=== PATIENT | female | born 1955 | race Caucasian/White ===

== ENCOUNTER 2017-06-29 10:31 | Inpatient (IN) | payer BC ==
[~2017-06-29] VITALS: Ht 162.6 cm; Wt 65.8 kg
--- NOTE | ~2017-06-29 | OP ---
PATIENT NAME: JONATHAN MENDOZA MEDICAL RECORD: [id number] :51 LOCATION:[id number] ADMISSION DATE:06/29/17 SURGEON: EULOGIO WEATHERS DO DATE OF OPERATION: 07/01/2017 DATE OF SURGERY: 07/01/2017 PROCEDURE PERFORMED: Left ankle bimalleolar open reduction internal fixation. PREOPERATIVE DIAGNOSIS: Left ankle bimalleolar fracture, closed. POSTOPERATIVE DIAGNOSIS: Left ankle bimalleolar fracture, closed. INDICATIONS: The patient is a 61-year-old female who fell while hiking and sustained a fracture and subluxation of her left ankle and was taken to the ER. X-rays were taken. The ankle was reduced and put into a splint. Surgery could not be done the day she got here. She is admitted for pain control and elevation. She was consented for procedure today. She was informed of the risks and benefits and consented to the procedure. SURGEON: Eulogio Weathers D.O. TOURNIQUET TIME: 64 minutes. ESTIMATED BLOOD LOSS: 50 mL. COMPLICATIONS: None. DESCRIPTION OF PROCEDURE: The patient was taken to the OR suite after getting a block in the preop area by anesthesia, laid in the supine position, given general anesthetic and LMA was placed. Once this was done, the left lower extremity was prepped and draped in sterile fashion. Time out was performed, everyone was in agreement of correct side, site, and the patient and she was given 2 grams Ancef. The procedure then commenced. I exsanguinated the left lower extremity with an Esmarch and then tourniquet was inflated. Once tourniquet was inflated, the lateral port was addressed first. Incision was made over the fibula and careful dissection was made down to the fibula itself. Reduction was made. It was somewhat difficult due to the comminution of the fracture site. The plate was put on locked with locking screws distally first and then proximally in the shafts. After reduction was made, a nonlocker was put into the shaft and the second to last hole and then a locker was placed in the most proximal hole. After this was done, attention was drawn to the medial side and a small incision was made over the medial malleolus in a curvilinear pattern and dissection was made down to the fracture site. The fracture was reduced and held in place with a single K-wire and then a second K-wire was placed just posterior to it. X-rays were taken and seemed to be good reduction of the medial malleolus and then cannulated screws were placed over those K-wires. After reaching the far cortex with a drill the 4.0 cannulated screws x 48 mm long. Good reduction was seen on x-ray. The K-wires were removed and then the ankle was stressed. It was not seen to open it all medially or any subluxation of the talus laterally and tourniquet was let down at 64 minutes. Any bleeders were coagulated at that time with the Bovie and this incision sites were irrigated. The medial side was then closed with 3-0 Vicryl in an inverted interrupted fashion on the skin and the lateral side was closed with 2-0 Vicryl in inverted interrupted fashion and then a ZipLine was placed over each of the OPERATIVE REPORT [id number] JONATHAN MENDOZA incision sites. Adaptic, 4 x 4s, and ABD were placed over the incisions and on the heel. Then, the whole leg was wrapped with layer of cast padding, a layer Kerlix and another layer of Webril and then a splint was put posteriorly and secured with a 6-inch Jacoby. The knee was held in flexion while the splint molded nicely. The patient was then awakened and taken to recovery in stable condition. TRANSINT:[id number] Voice Confirmation ID: [id number] DOCUMENT ID: [id number] EULOGIO WEATHERS DO at 2154 CC: [id number] DICTATION DATE: 07/01/17 1044 EMERGENCY RESPONSE COORDINATOR: 07/01/17 1141 ADM IN [facility] [address] [place] [address]
--- NOTE | ~2017-06-29 | EC ---
PATIENT:JONATHAN MENDOZA DATE OF SERVICE: 06/29/17 SEX: F MEDICAL RECORD: [id number] DATE OF : [birth year] LOCATION:[facility] AGE OF PATIENT: 61 ADMISSION DATE: 06/29/17 REFERRING PHYSICIAN: INTERPRETING PHYSICIAN: YOSHI THAPA MD ECHOCARDIOGRAM REPORT ECHO CHARGES 4 ECHO COMPLETE CLINICAL DIAGNOSIS: PRE-OP ECHOCARDIOGRAPHIC MEASUREMENTS (adult normal given) AC root (d.<3.7cm) 3.5 cm LV Septum d (<1.2 cm> 1.1 cm Valve Excursion 2.2 cm LV Septum (systole) 1.8 cm Left Atria (s.<4.0cm> 3.8 cm LVPW d(<1.2cm) 1.2 cm RV (d.<2.3cm) 2.2 cm LVPW (sytole) 2.0 cm LV diastole(<5.6CM) 6.1 cm MV E-F(>70mm/sec) cm LV systole 3.8 cm LVOT Diameter 1.9 cm MV exc.(>10mm) cm Est.ejection fraction (50-75%) % Pericardial Effusion N DOPPLER: LVIT cm/sec A 74.0 cm/sec E 60.0 cm/sec LA cm/sec RVSP 23.4 mmHg LVOT 101 cm/sec AOP1/2T m/s Asc. Ao 123 cm/sec RVOT 65.0 cm/sec RA cm/sec PA 91.0 cm/sec AV Gradient Peak 6.1 mmHg AV Mean 2.9 mmHg AV Area 2.7 cm MV Gradient Peak 3.2 mmHg MV Mean 1.1 mmHg MV Area cm COMMENTS: Machine Rug Cleaner: Graham LEIVAOE Director Of Accreditation: 4 Dr. Thapa TAPE# PACS DATE OF SERVICE: 06/30/2017 PROCEDURE: Transthoracic echocardiogram. FINDINGS: 1. Left ventricle is normal size to mildly dilated. The endocardial surface is not well visualized. There is a suggestion of posterior hypokinesis. The overall ejection fraction is low normal to mildly reduced at 45% to 50%. 2. The left atrium appears to be normal size, normal function. 3. The aortic valve is normal. ECHOCARDIOGRAM REPORT [id number] JONATHAN MENDOZA 4. Mitral valve is normal. 5. The tricuspid valve is normal. 6. Pericardium is normal. 7. The right atrium is normal. 8. The right ventricle is normal. CONCLUSIONS: The patient has a difficult to visualize echocardiogram, but grossly there are no obvious abnormalities on inflow across and into the left ventricle. There appears to be evidence of diastolic dysfunction and mild hypertensive heart disease. TRANSINT:[id number] Voice Confirmation ID: [id number] DOCUMENT ID: [id number] 07/07/2017 Edited to correct date of service, dmm. YOSHI THAPA MD at 1038 CC: [id number] DICTATION DATE: 07/01/17 1043 CREDIT OPERATIONS PROCESSOR: 07/01/17 1057 DIS IN 07/04/17 [address] [place] [address]
[~2017-06-29 10:31] MED LIST: ASPIRIN 81 MG E81 MG PO; COLACE100 MG PO; ELAVIL10 MG PO; FLOMAX0.4 MG PO; HEMOCYTE PLUS1 CAP PO; K-DUR20 MEQ PO; LEVOTHROID50 MCG; LEVOTHROID50 MCG PO; LOPRESSOR25 MG PO; MIRALAX17 GM PO; NEURONTIN 300300 MG PO; NORCO 10/325 TA1 TA1 PO; ONGLYZA5 MG PO; PRILOSEC20 MG PO; PRINIVIL20 MG PO; ZOCOR20 MG PO
[2017-06-29 23:01] VITALS: BP 152/79; BMI 24.9
[2017-06-30] VITALS: BP 152/79
[2017-06-30 04:00] VITALS: BP 156/80
[2017-06-30 08:36] VITALS: BP 123/70
[2017-06-30 11:34] LABS: BASOPHILS 0.6 % (0-2); EOSINOPHILS 0.4 % (0-7); HEMATOCRIT 35.3 % (36.0-48.0); HEMOGLOBIN 11.5 g/dL (12-16); LYMPHOCYTES 17.6 % (15-50); MCH 34.5 pg (26.0-34.0); MCHC 32.6 g/dL (31.0-37.0); MONOCYTES 8.6 % (2-11); NEUTROPHILS 72.8 % (40-80); PLATELET COUNT 240 10x3/uL (130-400); RBC 3.33 10x6/uL (4.00-5.40); WBC 5.5 10x3/uL (4.8-10.8)
[2017-06-30 11:41] LABS: ANION GAP 13.1 mmol/L (8-16); CARBON DIOXIDE 28.6 mmol/L (21.0-32.0); CREATININE - SERUM 0.9 mg/dL (0.6-1.3); POTASSIUM - SERUM 3.7 mmol/L (3.5-5.1)
[2017-06-30 11:42] LABS: INR 0.99 (0.85-1.17); PROTIME 12.7 SECONDS (11.6-15.0)
[2017-06-30 12:02] VITALS: BP 144/76
[2017-06-30 12:32] VITALS: BMI 24.9
[2017-06-30 14:09] VITALS: Ht 162.6 cm; Wt 65.8 kg
[2017-06-30 15:52] VITALS: BP 122/66
[2017-06-30 20:00] VITALS: BP 131/85
[2017-07-01 03:52] VITALS: BP 114/72
[2017-07-01 05:00] VITALS: BP 128/88
[2017-07-01 06:31] LABS: BASOPHILS 0.4 % (0-2); EOSINOPHILS 1.7 % (0-7); HEMOGLOBIN 10.4 g/dL (12-16); IMMATURE GRANULOCYTES 0.2 % (0-5); MCH 33.8 pg (26.0-34.0); MCHC 31.5 g/dL (31.0-37.0); MCV 107.1 fL (80.0-100.0); MEAN PLATELET VOLUME 10.4 fL (7.4-10.4); MONOCYTES 9.6 % (2-11); NEUTROPHILS 69.1 % (40-80); PLATELET COUNT 215 10x3/uL (130-400); RBC 3.08 10x6/uL (4.00-5.40); RDW 15.9 % (11.5-14.5); WBC 4.6 10x3/uL (4.8-10.8)
[2017-07-01 06:55] LABS: ALBUMIN 3.3 g/dL (3.4-5.0); ALKALINE PHOSPHATASE 86 U/L (46-116); ALT (SGPT) 24 U/L (10-68); BILIRUBIN - TOTAL 0.52 mg/dL (0.2-1.3); CALC OSMOLALITY 277 mosm/kg (275-300); CALCIUM 8.5 mg/dL (8.5-10.1); CARBON DIOXIDE 29.6 mmol/L (21.0-32.0); CHLORIDE - SERUM 103 mmol/L (98-107); CREATININE - SERUM 0.7 mg/dL (0.6-1.3); GLUCOSE 97 mg/dL (74-106); POTASSIUM - SERUM 3.6 mmol/L (3.5-5.1); PROTEIN - SERUM 6.4 g/dL (6.4-8.2); SODIUM 140 mmol/L (136-145); UREA NITROGEN 9 mg/dL (7-18); eGFR NON AFRICAN AMERICAN 90 mL/min (90-120)
[2017-07-01 11:03] VITALS: BP 149/83
[2017-07-01 11:07] VITALS: BP 144/69
[2017-07-01 22:00] VITALS: BP 140/72
[2017-07-02 05:00] VITALS: BP 139/74
[2017-07-02 07:18] LABS: ALBUMIN 3.1 g/dL (3.4-5.0); ALKALINE PHOSPHATASE 76 U/L (46-116); ALT (SGPT) 22 U/L (10-68); CALC OSMOLALITY 276 mosm/kg (275-300); CALCIUM 8.3 mg/dL (8.5-10.1); CARBON DIOXIDE 26.3 mmol/L (21.0-32.0); CHLORIDE - SERUM 104 mmol/L (98-107); CREATININE - SERUM 0.6 mg/dL (0.6-1.3); GLUCOSE 102 mg/dL (74-106); POTASSIUM - SERUM 3.4 mmol/L (3.5-5.1); PROTEIN - SERUM 6.5 g/dL (6.4-8.2); SODIUM 140 mmol/L (136-145); eGFR NON AFRICAN AMERICAN > 90 mL/min (90-120)
[2017-07-02 07:19] LABS: UREA NITROGEN 6 mg/dL (7-18)
[2017-07-02 07:28] VITALS: BP 150/72
[2017-07-02 07:50] LABS: BASOPHILS 0 % (0-2); EOSINOPHILS 0.1 % (0-7); HEMATOCRIT 29.8 % (36.0-48.0); HEMOGLOBIN 9.7 g/dL (12-16); IMMATURE GRANULOCYTES 0.1 % (0-5); LYMPHOCYTES 11.9 % (15-50); MCH 34.3 pg (26.0-34.0); MCHC 32.6 g/dL (31.0-37.0); MCV 105.3 fL (80.0-100.0); MEAN PLATELET VOLUME 10.2 fL (7.4-10.4); MONOCYTES 9.8 % (2-11); NEUTROPHILS 78.1 % (40-80); PLATELET COUNT 186 10x3/uL (130-400); RBC 2.83 10x6/uL (4.00-5.40); RDW 15.2 % (11.5-14.5)
[2017-07-02 07:53] LABS: WBC 6.9 10x3/uL (4.8-10.8)
[2017-07-02 11:04] VITALS: BP 137/77
[2017-07-02 20:00] VITALS: BP 122/73
[2017-07-03 04:00] VITALS: BP 126/75
[2017-07-03 06:23] LABS: BASOPHILS 0.3 % (0-2); EOSINOPHILS 1.3 % (0-7); HEMATOCRIT 31.6 % (36.0-48.0); IMMATURE GRANULOCYTES 0.2 % (0-5); LYMPHOCYTES 22.7 % (15-50); MCHC 31.6 g/dL (31.0-37.0); MEAN PLATELET VOLUME 10.7 fL (7.4-10.4); MONOCYTES 9.6 % (2-11); NEUTROPHILS 65.9 % (40-80); PLATELET COUNT 206 10x3/uL (130-400); RBC 2.94 10x6/uL (4.00-5.40); RDW 15.6 % (11.5-14.5)
[2017-07-03 06:26] LABS: MCV 107.5 fL (80.0-100.0)
[2017-07-03 06:53] LABS: ALBUMIN 2.7 g/dL (3.4-5.0); ALKALINE PHOSPHATASE 73 U/L (46-116); ALT (SGPT) 23 U/L (10-68); CALCIUM 8.5 mg/dL (8.5-10.1); CARBON DIOXIDE 28.2 mmol/L (21.0-32.0); CHLORIDE - SERUM 104 mmol/L (98-107); CREATININE - SERUM 0.7 mg/dL (0.6-1.3); GLUCOSE 94 mg/dL (74-106); PROTEIN - SERUM 6.2 g/dL (6.4-8.2); SODIUM 138 mmol/L (136-145); eGFR NON AFRICAN AMERICAN 90 mL/min (90-120)
[2017-07-03 06:54] LABS: CALC OSMOLALITY 274 mosm/kg (275-300); POTASSIUM - SERUM 4.1 mmol/L (3.5-5.1); UREA NITROGEN 9 mg/dL (7-18)
[2017-07-03 08:51] VITALS: BP 140/80
[2017-07-03 12:20] VITALS: BP 152/79
[2017-07-03 16:03] VITALS: BP 124/67
[2017-07-03 20:00] VITALS: BP 150/76
[2017-07-04 04:00] VITALS: BP 140/75
[2017-07-04 07:01] LABS: BASOPHILS 0.3 % (0-2); EOSINOPHILS 1.6 % (0-7); HEMATOCRIT 32.3 % (36.0-48.0); HEMOGLOBIN 10.6 g/dL (12-16); LYMPHOCYTES 15.4 % (15-50); MCH 34.6 pg (26.0-34.0); MCHC 32.8 g/dL (31.0-37.0); MCV 105.6 fL (80.0-100.0); MEAN PLATELET VOLUME 10.4 fL (7.4-10.4); MONOCYTES 10.4 % (2-11); NEUTROPHILS 72.3 % (40-80); PLATELET COUNT 220 10x3/uL (130-400); RBC 3.06 10x6/uL (4.00-5.40); RDW 15.1 % (11.5-14.5); WBC 6.4 10x3/uL (4.8-10.8)
[2017-07-04 07:27] LABS: % SATURATION 10 % (15-55); IRON 26 ug/dl (35-150); TOTAL IRON BIND CAPACITY 248 ug/dl (260-445); UNSAT IRON BIND CAPACITY 222 ug/dl (150-375)
[2017-07-04 07:38] LABS: ALKALINE PHOSPHATASE 77 U/L (46-116); ALT (SGPT) 24 U/L (10-68); BILIRUBIN - TOTAL 0.52 mg/dL (0.2-1.3); CALC OSMOLALITY 275 mosm/kg (275-300); CALCIUM 8.8 mg/dL (8.5-10.1); CARBON DIOXIDE 26.9 mmol/L (21.0-32.0); CHLORIDE - SERUM 102 mmol/L (98-107); CREATININE - SERUM 0.7 mg/dL (0.6-1.3); FERRITIN 70 ng/mL (3-244); GLUCOSE 106 mg/dL (74-106); POTASSIUM - SERUM 3.9 mmol/L (3.5-5.1); PROTEIN - SERUM 6.4 g/dL (6.4-8.2); SODIUM 139 mmol/L (136-145); UREA NITROGEN 8 mg/dL (7-18); eGFR NON AFRICAN AMERICAN 90 mL/min (90-120)
[2017-07-04 08:30] VITALS: BP 135/72
[2017-07-04] MEDS ORDERED: ATARAX 25 MG TA25 MG PO (10:46)
[2017-07-04] MEDS ORDERED: OXYCODONE HCL5 MG PO (10:46)
[2017-07-04] MEDS ORDERED: ELIQUIS2.5 MG PO (10:47)
[2017-07-04 12:16] VITALS: BP 127/76
== END 2017-07-04 15:51 | disposition home health service (06) | DRG 563 ==
LOC: D.ER 10:31 → D.MS 17:19
PROVIDERS: Family Medicine; Internal Medicine Nephrology; Orthopaedic Surgery
PROC: 0QSKXZZ Reposition Left Fibula, External Approach (ICD-10-PCS; principal; 2017-06-29)
PROC: 0QSHXZZ Reposition Left Tibia, External Approach (ICD-10-PCS; 2017-06-29)
DX: S82.842A Displaced bimalleolar fracture of left lower leg, initial encounter for closed fracture (principal); W01.0XXA Fall on same level from slipping, tripping and stumbling without subsequent striking against object, initial encounter; E11.65 Type 2 diabetes mellitus with hyperglycemia; D53.9 Nutritional anemia, unspecified; E03.9 Hypothyroidism, unspecified; I10 Essential (primary) hypertension; I25.10 Atherosclerotic heart disease of native coronary artery without angina pectoris; E78.5 Hyperlipidemia, unspecified; I25.2 Old myocardial infarction

== ENCOUNTER → 2017-10-31 10:22 | Outpatient (CLI) | payer MEDICAID ==
[2017-06-30 14:09] VITALS: BMI 24.9
[~2017-10-31 10:22] MED LIST changes: +ATARAX 25 MG TA25 MG PO; +ELIQUIS2.5 MG PO; +OXYCODONE HCL5 MG PO
== END | disposition home or self-care (01) ==
LOC: D.US 10-30 09:30
DX: R94.5 Abnormal results of liver function studies (principal)

== ENCOUNTER → 2017-11-23 11:54 | Outpatient (CLI) | payer MEDICAID ==
[2017-06-30 14:09] VITALS: BMI 24.9
--- NOTE | ~2017-11-23 | EC ---
PATIENT:JONATHAN MENDOZA DATE OF SERVICE: 11/23/17 SEX: F MEDICAL RECORD: [id number] DATE OF : 51 LOCATION:[facility] AGE OF PATIENT: 62 ADMISSION DATE: 11/23/17 REFERRING PHYSICIAN: INTERPRETING PHYSICIAN: YOSHI THAPA MD ECHOCARDIOGRAM REPORT ECHO CHARGES 4 ECHO COMPLETE Date: 11/23 CLINICAL DIAGNOSIS: CAD/HTN HX STENTS/CABG ECHOCARDIOGRAPHIC MEASUREMENTS (adult normal given) AC root (d.<3.7cm) 3.5 cm LV Septum d (<1.2 cm> 1.3 cm Valve Excursion 2.3 cm LV Septum (systole) 1.6 cm Left Atria (s.<4.0cm> 3.7 cm LVPW d(<1.2cm) 1.7 cm RV (d.<2.3cm) 4.3 cm LVPW (sytole) 1.7 cm LV diastole(<5.6CM) 6.2 cm MV E-F(>70mm/sec) cm LV systole 4.7 cm LVOT Diameter 2.1 cm MV exc.(>10mm) 1.8 cm Est.ejection fraction (50-75%) % DOPPLER: LVIT cm/sec A 61.0 cm/sec E 79.0 cm/sec LA cm/sec RVSP 35 mmHg LVOT 88 cm/sec AOP1/2T m/s Asc. Ao 123 cm/sec RVOT 83 cm/sec RA cm/sec PA 95 cm/sec AV Gradient Peak 6.07 mmHg AV Mean 2.94 mmHg AV Area 2.4 cm MV Gradient Peak 3.47 mmHg MV Mean 1.08 mmHg MV Area cm COMMENTS: Radio Interference Supervisor: 2 YOKASTA AUGUSTE Life Specialist: 4 Dr. Thapa TAPE# PACS Pericardial Effusion N DATE OF SERVICE: PROCEDURE: Transthoracic echocardiogram. FINDINGS: 1. The left ventricle and systolic dimensions are mildly enlarged. There is moderate left ventricular hypertrophy. Inflow characteristics are normal. The overall ejection fraction appears to be preserved. There are no obvious regional wall motion abnormalities. 2. The left atrium appears to be normal size, normal function. ECHOCARDIOGRAM REPORT [id number] JONATHAN MENDOZA 3. The aortic valve is normal. 4. The mitral valve has mild mitral regurgitation, otherwise normal. 5. The tricuspid valve has mild tricuspid regurgitation. RVSP appears to be 30 to 35 mmHg. 6. The right ventricle is mildly dilated. 7. The right atrium is mildly dilated. 8. There is trace aortic insufficiency. 9. The pulmonary valve is normal. CONCLUSIONS: The patient has evidence of left ventricular hypertrophy, mildly dilated right ventricle, otherwise normal study. TRANSINT:[id number] Voice Confirmation ID: [id number] DOCUMENT ID: [id number] YOSHI THAPA MD at 1342 CC: [id number] DICTATION DATE: 11/24/17802 [employer]AMMER [employer] SUPERVISOR: 11/24/17917 DEP CLI 11/23/17 [facility] [address] [place] [address]
== END | disposition home or self-care (01) ==
LOC: D.ECHO 11:54
DX: I10 Essential (primary) hypertension (principal); E78.5 Hyperlipidemia, unspecified; I25.10 Atherosclerotic heart disease of native coronary artery without angina pectoris